=== PATIENT | female | born 1985 | race Caucasian/White ===

== ENCOUNTER 2019-08-13 07:43 | Emergency (ER) | payer MEDICAID ==
--- NOTE | 2019-08-13 08:43 | ED Physician Documentation ---
PD HPI ABD PAIN - Stated complaint Stated Complaint: ABD PX - Chief complaint Chief Complaint: Abd Pain - History obtained from History obtained from: Patient, Family - History of Present Illness Timing - onset: Today Timing - duration: Hours (3) Timing - details: Abrupt onset Quality: Pain Location: RUQ, Epigastric Radiation: No: Chest, , Lower back, Left flank, Left shoulder, Other, Right flank, Right shoulder, Upper back Associated symptoms: Nausea, Vomiting. No: Fever, Diarrhea, Chest pain, Dizzy, Near syncope / syncope Similar symptoms before: No diagnosis Recently seen: Not recently seen - Additional information Additional information: This is a 34-year-old woman who is home visiting for [employer] is concerned she may be having a gallbladder attack. They had [employer] dinner last night and then she woke up at 530 this morning and "agony". Pain was in the right upper quadrant and get epigastric area. She started vomiting. She tried to drink some water but it did not stay down. She has not had fever but been having hot and cold flashes. She had a similar episode happen a few months ago and went to the emergency department in [place] where she lives. She was feeling better by the time she got to the ER and did not want to get any needle pokes so she left without having any testing. She denies any recent illness. No sore throat or stuffy nose. No coughing. No chest pain. No dizziness. No dysuria. No history of kidney stones. She denies stating that she is on oral contraceptives and does not get her. Review of Systems Constitutional: reports: Chills, Sweats. denies: Fever Ears: denies: Ear pain Nose: denies: Congestion Throat: denies: Sore throat Cardiac: denies: Chest pain / pressure, Palpitations Respiratory: denies: Dyspnea, Cough GI: reports: Abdominal Pain, Nausea, Vomiting. denies: Diarrhea, Hematemesis : reports: Control. denies: Dysuria, Frequency, Now EGA Skin: denies: Rash Musculoskeletal: denies: Neck pain, Back pain Neurologic: denies: Near syncope, Syncope PD PAST MEDICAL HISTORY - Past Medical History Past Medical History: No - Past Surgical History Past Surgical History: Yes - Present Medications Home Medications: Ambulatory Orders Medication Instructions Recorded Confirmed No Known Home Medications 08/13/19 08/13/19 - Allergies Allergies/Adverse Reactions: Allergies Allergy/AdvReac Type Severity Reaction Status Date / Time No Known Drug Allergies Allergy Verified 08/13/19 08:02 - Social History Does the pt smoke?: No Smoking Status: Never smoker Does the pt drink ETOH?: No Does the pt have substance abuse?: No - Immunizations Immunizations are current?: Yes PD ED PE NORMAL - Vitals Vital signs reviewed: Yes - General General: Alert and oriented X 3, No acute distress, Well developed/nourished - HEENT HEENT: Atraumatic, PERRL, Moist mucous membranes, Other (No scleral icterus) - Neck Neck: No adenopathy, Thyroid normal - Cardiac Cardiac: RRR, No murmur - Respiratory Respiratory: No respiratory distress, Clear bilaterally - Abdomen Abdomen: Normal bowel sounds, Soft, Other (Tenderness with guarding in the right upper quadrant. Diffusely tender otherwise.) - Derm Derm: Normal color, Warm and dry, No rash - Extremities Extremities: No edema - Neuro Neuro: Alert and oriented X 3, No motor deficit, No sensory deficit, Normal speech - Psych Psych: Normal mood, Normal affect Results - Vitals Vitals: Vital Signs - 24 hr 08/13/19 08/13/19 08/13/19 07:58 09:40 10:57 Temperature Heart Rate 59 L 48 L 51 L Respiratory 28 H 18 18 Rate Blood Pressure 149/61 H 159/115 H 131/77 H O2 Saturation 100 100 97 08/13/19 08/13/19 14:13 15:19 Temperature 36.4 C L 36.9 C Heart Rate 65 73 Respiratory 16 20 Rate Blood Pressure 136/90 H 149/100 H O2 Saturation 100 99 Oxygen O2 Source Room air - Labs Labs: Laboratory Tests 08/13/19 08/13/19 08/13/19 09:38 09:38 13:52 WBC 12.9 H RBC 4.97 Hgb 15.2 Hct 46.0 MCV 92.6 MCH 30.6 MCHC 33.0 RDW 13.8 Plt Count 439 MPV 9.4 Neut # (Auto) 10.2 H Lymph # (Auto) 1.7 [place] # (Auto) 0.9 Eos # (Auto) 0.1 Baso # (Auto) 0.1 Absolute Nucleated RBC 0.00 Nucleated RBC % 0.0 Sodium 135 Potassium 3.3 L Chloride 101 Carbon Dioxide 25 Anion Gap 9.0 BUN 13 Creatinine 0.9 Estimated GFR (MDRD) 72 L Glucose 128 H Calcium 9.0 Total Bilirubin 0.5 AST 23 ALT 23 Alkaline Phosphatase 61 Total Protein 8.0 Albumin 4.5 Globulin 3.5 Albumin/Globulin Ratio 1.3 Lipase 119 H Urine Color YELLOW Urine Clarity CLEAR Urine pH 6.0 Ur Specific [place] 1.025 Urine Protein NEGATIVE Urine Glucose (UA) NEGATIVE Urine Ketones TRACE Urine Occult Blood NEGATIVE Urine Nitrite NEGATIVE Urine Bilirubin NEGATIVE Urine Urobilinogen 0.2 (NORMAL) Ur Leukocyte Esterase NEGATIVE Ur Microscopic Review NOT INDICATED Urine Culture Comments NOT INDICATED Urine HCG, Qual NEGATIVE - Rads (name of study) U/S gall bladder Radiology: See rad report (+ gall stones and common bile duct mildly distended at 6mm) PD MEDICAL DECISION MAKING - ED course Complexity details: re-evaluated patient ED course: Patient had an IV started and was given Toradol 30 mg IV and Zofran 4 mg IV. On reevaluation she stated that her pain was completely gone. Her white blood cell counts minimally elevated. Normal liver enzymes but her lipase is 119. Have ordered ultrasound of the right upper quadrant to rule out gallstones and gallstone impaction. Patient is aware and agreeable to the plan. The ultrasound showed cholelithiasis questionable gallstone in the gallbladder neck with prominence of the extrahepatic bile duct at 6 mm. I discussed this with the patient about further evaluation with MRCP which we cannot do here at [facility] on a Wednesday. She was hesitant about having anything done currently right now anyway because she lives in [place] but she did consent for me to talk with the GI specialist and I spoke with Dr. Zimmer at [facility]. He recommended I did consult with a surgeon here about cholecystectomy and intraoperative cholangiogram. When I spoke with Dr. Mueller she felt comfortable letting the patient be discharged with outpatient follow-up which is in fitting with with the patient's initial desires were anyway. She will be counseled about the need for immediate follow-up if her symptoms are worsening. 1438: When I went back to discuss the plan with the patient her hospital gown was balled up on the bed in the room was empty. There was no one in the b athroom. Apparently she has eloped from the emergency department without notifying any of the staff. I have notified the nursing staff that she is no longer in the room. Is unclear to me whether or not she still has her IV and at this point. 1509: Patient was found to at the bus stop just off the hospital campus smoking with the IV in. She had planned on returning to the emergency department but felt that she just had to have a cigarette at that time. When I went into talk to her to tell her the good news that she could follow-up outpatient she was crying and said she just had a really bad day but she was glad that she would be able to be discharged home. She is encouraged to follow-up if her symptoms are worsening at all. Departure - Departure Disposition: Home, Self Care Clinical Impression: Abdominal pain Qualifiers: Abdominal location: right upper quadrant Qualified Code(s): R10.11 - Right upper quadrant pain Pancreatitis Qualifiers: Chronicity: acute Pancreatitis type: unspecified pancreatitis type Acute pancreatitis complication: unspecified Qualified Code(s): K85.90 - Acute pancreatitis without necrosis or infection, unspecified Condition: Good Instructions: ED Gallstone W Biliary Colic, ED Pancreatitis Follow-Up: your,doctor [Other] Comments: After discussion with the surgeon here at [facility] they felt like he it was okay for you to be discharged and have outpatient follow-up. Avoid any fatty, fried or spicy foods. It is okay to take Tylenol or ibuprofen for the pain if needed. You should contact her primary care provider early this week for referral to surgery regarding having her gallbladder removed. He should follow-up immediately at any emergency department if you have return of the pain, you are vomiting and cannot keep anything down you develop a fever or other problems arise. Discharge Date/Time: 08/13/19 15:21
[2019-08-13] MEDS ORDERED: HYDROmorphone 1 MG/ML CARPUJECT IVP STA (09:11)
[2019-08-13] MEDS ORDERED: SODIUM CHLORIDE 0.9% 1,000 ML IV STA (09:11)
[2019-08-13] MEDS ORDERED: ONDANSETRON 4 MG/2 ML VIAL IVP STA (09:11)
[2019-08-13 10:00] LABS: BASOPHILS # (AUTO) 0.1 10^3/uL (0.0-0.1); BASOPHILS % (AUTO) 0.5 %; EOSINOPHILS # (AUTO) 0.1 10^3/uL (0.0-0.7); EOSINOPHILS % (AUTO) 0.4 %; HGB - HEMOGLOBIN 15.2 g/dL (12.0-16.0); LYMPHOCYTES # (AUTO) 1.7 10^3/uL (1.5-3.5); LYMPHOCYTES % (AUTO) 12.8 %; MEAN CORPUSCULAR HEMOGLOBIN 30.6 pg (27.0-31.0); MEAN CORPUSCULAR VOLUME 92.6 fL (81.0-99.0); MEAN PLATELET VOLUME 9.4 fL (7.9-10.8); MONOCYTES # (AUTO) 0.9 10^3/uL (0.0-1.0); MONOCYTES % (AUTO) 6.7 %; NEUTROPHILS # (AUTO) 10.2 10^3/uL (1.5-6.6); NEUTROPHILS % (AUTO) 79.1 %; PLT - PLATELET COUNT 439 10^3/uL (130-450); RED BLOOD COUNT 4.97 10^6/uL (4.20-5.40); RED CELL DISTRIBUTION WIDTH 13.8 % (12.0-15.0); WHITE BLOOD COUNT 12.9 x10^3/uL (4.8-10.8)
[2019-08-13 10:05] LABS: ALBUMIN 4.5 g/dL (3.2-5.5); ALBUMIN/GLOBULIN RATIO 1.3 (1.0-2.2); BILIRUBIN,TOTAL 0.5 mg/dL (0.2-1.0); CREATININE 0.9 mg/dL (0.4-1.0)
--- NOTE | 2019-08-13 12:03 | Ultrasound Report ---
Reason: RUQ pain; levated lipase Procedure Date: 08/13/2019 Accession Number: [id number] / [id number] Procedure: US - Abdomen Limited CPT Code: Final Report FULL RESULT: EXAM: ABDOMEN ULTRASOUND LIMITED, RUQ EXAM DATE: 08/13/2019 11:38 AM. CLINICAL HISTORY: Right upper quadrant pain. Elevated lipase. COMPARISON: None. TECHNIQUE: Real-time scanning was performed with static images obtained. FINDINGS: Liver: The liver is slightly echogenic in appearance suggesting possible fibrofatty infiltration. No suspicious lesions or masses are identified. The liver measures 19.8 cm. Main portal vein flow: Hepatopetal. Gallbladder: Several gallstones are seen within partially contracted gallbladder. A subcentimeter potentially nonmobile gallstone in the gallbladder neck region is suggested. No pericholecystic fluid is seen. Biliary System: CBD measures 6 mm. No significant intrahepatic biliary dilatation is seen. Slight prominence of the extrahepatic bile ducts is seen. Other: None. IMPRESSION: 1. Cholelithiasis without definitive evidence of cholecystitis. Questionable subcentimeter nonmobile gallstone in the gallbladder neck region is noted however. 2. Slight prominence of the extrahepatic bile ducts with common bile duct measuring up to 6 mm. Biliary obstructive process is not excluded. Correlation with MRCP could be helpful in further evaluation. 3. Possible fatty liver and mild hepatomegaly. RADIA
[2019-08-13 14:07] LABS: BILIRUBIN,URINE NEGATIVE (NEGATIVE); GLUCOSE, URINE (UA) NEGATIVE (NEGATIVE); KETONES,URINE (UA) TRACE mg/dL (NEGATIVE); LEUKOCYTE ESTERASE, URINE NEGATIVE (NEGATIVE); NITRITE,URINE NEGATIVE (NEGATIVE); OCCULT BLOOD,URINE NEGATIVE (NEGATIVE); PROTEIN,URINE NEGATIVE (NEGATIVE); UROBILINOGEN,URINE 0.2 (NORMAL) E.U./dL (NORMAL)
[2019-08-13 14:08] LABS: CLARITY,URINE CLEAR (CLEAR)
[2019-08-13 14:09] LABS: HCG UR QUAL NEGATIVE
[2019-08-13 15:20] VITALS: BP 149/100
== END 2019-08-13 15:21 | disposition home or self-care (01) ==
LOC: ED 07:43
DX: K85.90 Acute pancreatitis without necrosis or infection, unspecified (principal); K80.20 Calculus of gallbladder without cholecystitis without obstruction; F17.210 Nicotine dependence, cigarettes, uncomplicated
CPT/HCPCS: 36415; 76705; 80053; 81003; 81025; 83690; 85025; 96361; 96374; 99284; J1170; 81001; 87086